=== PATIENT | male | born 1930 | race Caucasian/White ===

== ENCOUNTER 2016-06-01 11:47 | Emergency (ER) | payer MEDICARE, OTHER ==
[~2016-06-01] VITALS: Ht 175.3 cm; Wt 79.4 kg
[~2016-06-01 11:47] MED LIST: BUPR75TA4 PO; MEMA5TAB2; METF-312 PO; TELM20TA2; [UNRECOGNIZED DRUG - CODE]
[2016-06-01 12:03] VITALS: BP 153/95
[2016-06-01] MEDS ORDERED: LIDOCAINE 1% HCL (LOCAL ANESTH.) INJ 20ML MDV ONE (14:24)
[2016-06-01] MEDS ORDERED: ACETAMINOPHEN 325 MG TAB PO ONE (14:45)
== END 2016-06-01 16:17 | disposition home or self-care (01) ==
LOC: ER 11:58
DX: S61.411A Laceration without foreign body of right hand, initial encounter (principal); S01.01XA Laceration without foreign body of scalp, initial encounter; E11.9 Type 2 diabetes mellitus without complications; E78.5 Hyperlipidemia, unspecified; I10 Essential (primary) hypertension; W01.0XXA Fall on same level from slipping, tripping and stumbling without subsequent striking against object, initial encounter; Y93.E1 Activity, personal bathing and showering; Y99.8 Other external cause status; Y92.89 Other specified places as the place of occurrence of the external cause; Z79.899 Other long term (current) drug therapy
CPT/HCPCS: 12002; 70450; 73130; 99284; J2001

== ENCOUNTER 2016-06-03 10:00 | Emergency (ER) | payer MEDICARE, OTHER ==
[~2016-06-03] VITALS: Ht 175.3 cm; Wt 81.6 kg
[2016-06-03 10:58] VITALS: BP 158/94
== END 2016-06-03 11:13 | disposition home or self-care (01) ==
LOC: ER 10:04
DX: S01.01XD Laceration without foreign body of scalp, subsequent encounter (principal); S61.411D Laceration without foreign body of right hand, subsequent encounter; E11.9 Type 2 diabetes mellitus without complications; E78.5 Hyperlipidemia, unspecified; I10 Essential (primary) hypertension; Z48.01 Encounter for change or removal of surgical wound dressing

== ENCOUNTER 2016-07-08 04:53 | Emergency (ER) | payer MEDICARE, OTHER ==
[~2016-07-08] VITALS: Ht 177.8 cm; Wt 81.6 kg
[~2016-07-08 04:53] MED LIST changes: +ACET-1079 PO; +ASPI81CH59 PO; +CLOP75TA41 PO; +LOSA25TA9 PO; +SITA100T7 PO
[2016-07-08 06:05] LABS: Basophils # (auto) 0 uL; Basophils % (auto) 0.3 % (0.0-2.0); Eosinophils # (auto) 0.2 uL; Eosinophils % (auto) 2.3 % (0.0-7.0); Hematocrit 40.8 % (41.0-53.0); Hemoglobin 13.1 g/dL (13.5-17.5); Lymphocytes # (auto) 0.7 uL; Lymphocytes % (auto) 11.2 % (10.0-50.0); Mean Corpuscular Hemoglobin 30.2 pg (28.0-32.0); Mean Corpuscular Hgb Conc. 32.1 g/dL (32.0-36.0); Mean Corpuscular Volume 94.2 fL (80.0-100.0); Mean Platelet Volume 8.7 fL (7.4-10.4); Monocytes # (auto) 0.6 uL; Monocytes % (auto) 8.6 % (0.0-12.0); Neutrophils # (auto) 5.1 uL; Neutrophils % (auto) 77.6 % (37.0-80.0); Platelet Count (auto) 199 10^3/uL (140-450); Red Cell Distribution Width 18.2 % (11.6-16.0); White Blood Cell 6.6 10^3/uL (4.4-10.8)
[2016-07-08 06:21] LABS: Partial Thromboplastin Time 26.5 sec (22.64-33.71)
[2016-07-08 06:37] LABS: Albumin 2.9 g/dL (3.4-5.0); BUN/Creatinine Ratio 18.4; Magnesium 1.9 mg/dL (1.6-2.6); Potassium 4.4 mmol/L (3.5-5.1)
[2016-07-08 06:41] LABS: INR 1.51 (0.9-1.15); Prothrombin Time 15.6 sec (9.37-12.3)
[2016-07-08 06:42] LABS: Bilirubin, Total 1.2 mg/dL (0.2-1.0); Total Protein 5.9 g/dL (6.4-8.2)
[2016-07-08] MEDS ORDERED: ETOMIDATE (2MG/ML) 20ML VIAL IV ONE (08:04)
[2016-07-08] MEDS ORDERED: SUCCINYLCHOLINE CHLORIDE 20 MG/ML 10ML VIAL IV ONE (08:04)
[2016-07-08] MEDS ORDERED: MIDAZOLAM HCL 1MG/1ML-2 ML VIAL ONE (08:05)
[2016-07-08] MEDS ORDERED: PROPOFOL 100 ML IV ONE (08:17)
[2016-07-08 08:21] VITALS: BP 160/106
== END 2016-07-08 08:39 | disposition short-term general hospital (02) ==
LOC: ER 04:53
DX: G93.41 Metabolic encephalopathy (principal); R79.89 Other specified abnormal findings of blood chemistry; I12.9 Hypertensive chronic kidney disease with stage 1 through stage 4 chronic kidney disease, or unspecified chronic kidney disease; E11.22 Type 2 diabetes mellitus with diabetic chronic kidney disease; N18.9 Chronic kidney disease, unspecified; I25.2 Old myocardial infarction; Z95.0 Presence of cardiac pacemaker; R41.82 Altered mental status, unspecified
CPT/HCPCS: 31500; 36415; 51702; 70450; 73090; 73130; 73502; 80053; 83735; 83880; 84484; 85025; 85610; 85730; 93005; 99291; J0330; J2250; J2704

== ENCOUNTER 2017-06-18 11:55 | Inpatient (IN) | payer MEDICARE, OTHER ==
[~2017-06-18] VITALS: Ht 177.8 cm; Wt 81.1 kg
[~2017-06-18 11:55] MED LIST changes: -METF-312 PO; +METF-370 PO; +TELM20TA; -TELM20TA2
[2017-06-18] MEDS ORDERED: KETOROLAC TROMETH 30 MG/ML 1ML VIAL IV ONE (12:30)
[2017-06-18 14:00] LABS: Basophils # (auto) 0.1 uL; Eosinophils # (auto) 0.2 uL; Eosinophils % (auto) 2.5 % (0.0-7.0); Hematocrit 42.6 % (41.0-53.0); Hemoglobin 14.4 g/dL (13.5-17.5); Lymphocytes # (auto) 0.5 uL; Lymphocytes % (auto) 6.6 % (10.0-50.0); Mean Corpuscular Hemoglobin 30.1 pg (28.0-32.0); Mean Corpuscular Hgb Conc. 33.8 g/dL (32.0-36.0); Mean Corpuscular Volume 89.2 fL (80.0-100.0); Monocytes # (auto) 0.7 uL; Monocytes % (auto) 9.8 % (0.0-12.0); Neutrophils % (auto) 80.1 % (37.0-80.0); Nucleated Red Blood Cells % 0.2 %; Platelet Count (auto) 207 10^3/uL (140-450); Red Blood Cells 4.77 10^6/uL (4.5-5.90); White Blood Cell 7.5 10^3/uL (4.4-10.8)
[2017-06-18 14:26] LABS: Albumin 3.2 g/dL (3.4-5.0); BUN/Creatinine Ratio 24.6; Bilirubin, Total 1.4 mg/dL (0.2-1.0); Calcium 8.4 mg/dL (8.5-10.1); Magnesium 2.4 mg/dL (1.6-2.6); Total Protein 7.2 g/dL (6.4-8.2)
[2017-06-18] MEDS ORDERED: traMADol HCL 50 MG TAB PO PRN (15:00)
[2017-06-18] MEDS ORDERED: ONDANSETRON HCL 4 MG/2 ML VIAL IV PRN (15:00)
[2017-06-18] MEDS ORDERED: ACETAMINOPHEN 500 MG TAB PO PRN (15:00)
[2017-06-18] MEDS ORDERED: MORPHINE SULFATE 4 MG/ML SYR/VIAL IV PRN (15:00)
[2017-06-18] MEDS ORDERED: DEXTROSE (50%) 50ML SYRG IV PRN (15:00)
[2017-06-18] MEDS ORDERED: LIDOCAINE 5% TOPICAL PATCH TOP ONE (15:45)
[2017-06-18] MEDS: ACCU-CHEK COMFORT CURVE STRIP VI SCH ×2 (17:54→23:12)
[2017-06-18] MEDS: InsuLIN REG 1unit/0.01ml Soln (100units/ml) SC SCH ×2 (17:54→23:12)
[2017-06-18] MEDS: hydrALAZINE HCL 20 MG/ML VL IV SCH (18:17)
[2017-06-18] MEDS: TAMSULOSIN HYDROCHLORIDE 0.4 MG CAP PO SCH (18:17)
[2017-06-18] MEDS: CALCIUM W/VIT D (600MG/400IU) TAB PO SCH (18:17)
[2017-06-18 20:46] VITALS: BP 116/72
[2017-06-18 22:23] VITALS: BP 116/72
[2017-06-19] MEDS: hydrALAZINE HCL 20 MG/ML VL IV SCH ×5 (00:09→23:11)
[2017-06-19 04:06] LABS: Urine Bacteria NONE SEEN /hpf (None Seen); Urine Blood Negative /uL (Negative); Urine Mucus FEW (None Seen); Urine Specific Gravity 1.022 (1.001-1.035); Urine WBC 2 /hpf (0 - 3)
[2017-06-19 04:53] VITALS: BP 135/80
[2017-06-19] MEDS: InsuLIN REG 1unit/0.01ml Soln (100units/ml) SC SCH ×4 (06:13→22:27)
[2017-06-19] MEDS: ACCU-CHEK COMFORT CURVE STRIP VI SCH ×4 (06:13→22:27)
[2017-06-19 06:57] LABS: Basophils # (auto) 0 uL; Basophils % (auto) 0.5 % (0.0-2.0); Eosinophils # (auto) 0.3 uL; Eosinophils % (auto) 4.6 % (0.0-7.0); Hematocrit 40.7 % (41.0-53.0); Hemoglobin 13.9 g/dL (13.5-17.5); Lymphocytes # (auto) 0.5 uL; Lymphocytes % (auto) 8.8 % (10.0-50.0); Mean Corpuscular Hemoglobin 30.2 pg (28.0-32.0); Mean Corpuscular Hgb Conc. 34.1 g/dL (32.0-36.0); Mean Corpuscular Volume 88.4 fL (80.0-100.0); Monocytes # (auto) 0.7 uL; Monocytes % (auto) 11.1 % (0.0-12.0); Neutrophils # (auto) 4.6 uL; Nucleated Red Blood Cells % 0.2 %; Platelet Count (auto) 212 10^3/uL (140-450); White Blood Cell 6.1 10^3/uL (4.4-10.8)
[2017-06-19 07:12] LABS: BUN/Creatinine Ratio 34.7; Calcium 8.4 mg/dL (8.5-10.1); Potassium 3.7 mmol/L (3.5-5.1)
[2017-06-19 08:58] VITALS: BP 117/56
[2017-06-19] MEDS: CALCIUM W/VIT D (600MG/400IU) TAB PO SCH ×2 (08:58→18:11)
[2017-06-19] MEDS ORDERED: ASPirin-EC 81 mg tab PO SCH (10:00)
[2017-06-19] MEDS ORDERED: CLOPIDOGREL BISULFATE 75 MG TAB PO SCH (10:00)
[2017-06-19] MEDS: MEMANTINE HCL 5 MG TAB PO SCH (10:28)
[2017-06-19] MEDS: ASPirin-EC 81 mg tab PO SCH (10:28)
[2017-06-19] MEDS: buPROPion HCL 75 MG TAB PO SCH (10:28)
[2017-06-19] MEDS: amLODIPine BESYLATE 5 MG TAB PO SCH (10:28)
[2017-06-19 13:00] VITALS: BP 122/68
[2017-06-19] MEDS: MORPHINE SULFATE 4 MG/ML SYR/VIAL IV PRN ×2 (14:48→22:22)
[2017-06-19] MEDS: LIDOCAINE 5% TOPICAL PATCH TOP SCH (14:48)
[2017-06-19 16:25] VITALS: BP 124/74
[2017-06-19] MEDS: TAMSULOSIN HYDROCHLORIDE 0.4 MG CAP PO SCH (18:11)
[2017-06-19 20:00] VITALS: BP 132/75
[2017-06-19 21:44] VITALS: BP 132/75
[2017-06-20] MEDS: MORPHINE SULFATE 4 MG/ML SYR/VIAL IV PRN ×2 (02:34→14:38)
[2017-06-20 04:56] VITALS: BP 161/89
[2017-06-20] MEDS: hydrALAZINE HCL 20 MG/ML VL IV SCH ×3 (05:50→18:14)
[2017-06-20] MEDS: ACCU-CHEK COMFORT CURVE STRIP VI SCH ×4 (05:50→22:00)
[2017-06-20] MEDS: InsuLIN REG 1unit/0.01ml Soln (100units/ml) SC SCH ×4 (06:18→22:00)
[2017-06-20 09:38] VITALS: BP 141/79
[2017-06-20] MEDS: buPROPion HCL 75 MG TAB PO SCH (10:13)
[2017-06-20] MEDS: ASPirin-EC 81 mg tab PO SCH (10:13)
[2017-06-20] MEDS: CALCIUM W/VIT D (600MG/400IU) TAB PO SCH ×2 (10:13→18:12)
[2017-06-20] MEDS: MEMANTINE HCL 5 MG TAB PO SCH (10:14)
[2017-06-20] MEDS: amLODIPine BESYLATE 5 MG TAB PO SCH (10:14)
[2017-06-20 13:00] VITALS: BP 136/87
[2017-06-20] MEDS: LIDOCAINE 5% TOPICAL PATCH TOP SCH (14:39)
[2017-06-20 16:06] VITALS: BP 124/77
[2017-06-20] MEDS: TAMSULOSIN HYDROCHLORIDE 0.4 MG CAP PO SCH (18:13)
[2017-06-20 20:00] VITALS: BP 146/78
[2017-06-20 22:00] VITALS: BP 146/78
[2017-06-21] MEDS: hydrALAZINE HCL 20 MG/ML VL IV SCH ×3 (00:15→12:06)
[2017-06-21 05:30] VITALS: BP 148/77
[2017-06-21] MEDS: InsuLIN REG 1unit/0.01ml Soln (100units/ml) SC SCH ×2 (06:38→12:05)
[2017-06-21] MEDS: ACCU-CHEK COMFORT CURVE STRIP VI SCH ×2 (06:52→12:05)
[2017-06-21 09:06] VITALS: BP 132/76
[2017-06-21] MEDS: CALCIUM W/VIT D (600MG/400IU) TAB PO SCH (09:11)
[2017-06-21] MEDS: buPROPion HCL 75 MG TAB PO SCH (11:06)
[2017-06-21] MEDS: amLODIPine BESYLATE 5 MG TAB PO SCH (11:07)
[2017-06-21] MEDS: ASPirin-EC 81 mg tab PO SCH (11:08)
[2017-06-21] MEDS: MEMANTINE HCL 5 MG TAB PO SCH (11:08)
[2017-06-21 12:14] VITALS: BP 104/61
== END 2017-06-21 16:40 | DRG 542 ==
LOC: EDBD 11:55 → ER 11:55 → OVERFLOW 11:56 → CENTRAL 18:41
PROVIDERS: ADMIT Internal Medicine; ATTEND Internal Medicine
DX: M48.54XA Collapsed vertebra, not elsewhere classified, thoracic region, initial encounter for fracture (principal); G93.41 Metabolic encephalopathy; E44.0 Moderate protein-calorie malnutrition; I27.21 Secondary pulmonary arterial hypertension; I48.91 Unspecified atrial fibrillation; D68.59 Other primary thrombophilia; G91.2 (Idiopathic) normal pressure hydrocephalus; E11.9 Type 2 diabetes mellitus without complications; G30.9 Alzheimer's disease, unspecified; F02.80 Dementia in other diseases classified elsewhere, unspecified severity, without behavioral disturbance, psychotic disturbance, mood disturbance, and anxiety; W18.30XA Fall on same level, unspecified, initial encounter; I11.9 Hypertensive heart disease without heart failure; K57.30 Diverticulosis of large intestine without perforation or abscess without bleeding; N40.0 Benign prostatic hyperplasia without lower urinary tract symptoms; Z79.82 Long term (current) use of aspirin; Z79.899 Other long term (current) drug therapy; Z82.49 Family history of ischemic heart disease and other diseases of the circulatory system; Z79.84 Long term (current) use of oral hypoglycemic drugs; Y93.89 Activity, other specified; Y92.89 Other specified places as the place of occurrence of the external cause; Y99.8 Other external cause status; Z68.25 Body mass index [BMI] 25.0-25.9, adult; Z95.0 Presence of cardiac pacemaker
CPT/HCPCS: 36415; 74176; 80048; 80053; 81001; 82962; 83036; 83690; 83735; 85025; 93005; 94761; 96374; 97163; J1815; J1885

== ENCOUNTER → 2017-08-28 | Outpatient (CLI) | payer MEDICARE, OTHER ==
[2017-08-28 12:04] LABS: Basophils # (auto) 0.1 uL; Basophils % (auto) 0.8 % (0.0-2.0); Eosinophils # (auto) 0.2 uL; Eosinophils % (auto) 2.5 % (0.0-7.0); Hematocrit 43.2 % (41.0-53.0); Hemoglobin 14.3 g/dL (13.5-17.5); Lymphocytes # (auto) 0.6 uL; Lymphocytes % (auto) 7.8 % (10.0-50.0); Mean Corpuscular Hemoglobin 29.1 pg (28.0-32.0); Mean Corpuscular Volume 88.1 fL (80.0-100.0); Monocytes # (auto) 0.6 uL; Neutrophils % (auto) 80.9 % (37.0-80.0); Platelet Count (auto) 290 10^3/uL (140-450); Red Cell Distribution Width 15.6 % (11.8-14.3); White Blood Cell 7.4 10^3/uL (4.4-10.8)
[2017-08-28 12:05] LABS: Urine Blood Negative /uL (Negative); Urine Specific Gravity 1.024 (1.001-1.035)
[2017-08-28 13:32] LABS: Albumin 3.6 g/dL (3.4-5.0); BUN/Creatinine Ratio 23.2; Calcium 9.3 mg/dL (8.5-10.1); Potassium 4.3 mmol/L (3.5-5.1); Total Protein 7.7 g/dL (6.4-8.2)
[2017-08-28 13:49] LABS: INR 1.11 (0.9-1.15); Partial Thromboplastin Time 27.8 sec (22.64-33.71); Prothrombin Time 12.1 sec (9.37-12.3)
== END | disposition home or self-care (01) ==
LOC: LAB 11:41
DX: Z01.812 Encounter for preprocedural laboratory examination (principal); D68.8 Other specified coagulation defects; M25.129 Fistula, unspecified elbow; Z79.01 Long term (current) use of anticoagulants
CPT/HCPCS: 36415; 80053; 81003; 85025; 85610; 85730

== ENCOUNTER → 2017-09-28 | Outpatient (CLI) | payer MEDICARE, OTHER ==
[2017-09-28 14:01] LABS: Basophils # (auto) 0.1 uL; Basophils % (auto) 0.9 % (0.0-2.0); Eosinophils # (auto) 0.2 uL; Eosinophils % (auto) 2.7 % (0.0-7.0); Hematocrit 39.6 % (41.0-53.0); Hemoglobin 13.1 g/dL (13.5-17.5); Lymphocytes # (auto) 0.8 uL; Lymphocytes % (auto) 11.5 % (10.0-50.0); Mean Corpuscular Hgb Conc. 33.1 g/dL (32.0-36.0); Mean Corpuscular Volume 90.7 fL (80.0-100.0); Monocytes # (auto) 0.6 uL; Monocytes % (auto) 9.2 % (0.0-12.0); Neutrophils # (auto) 5.3 uL; Neutrophils % (auto) 75.7 % (37.0-80.0); Platelet Count (auto) 236 10^3/uL (140-450); Red Blood Cells 4.37 10^6/uL (4.5-5.90); White Blood Cell 6.9 10^3/uL (4.4-10.8)
[2017-09-28 14:11] LABS: Urine Bacteria NONE SEEN /hpf (None Seen); Urine Blood Negative /uL (Negative); Urine Mucus FEW (None Seen); Urine Specific Gravity 1.022 (1.001-1.035); Urine WBC 2 /hpf (0 - 3)
[2017-09-28 14:19] LABS: INR 1.17 (0.9-1.15); Partial Thromboplastin Time 28.2 sec (23.78-33.04); Prothrombin Time 12.4 sec (9.27-12.13)
[2017-09-28 14:59] LABS: Albumin 3.5 g/dL (3.4-5.0); BUN/Creatinine Ratio 24.1; Calcium 8.9 mg/dL (8.5-10.1); Potassium 4.3 mmol/L (3.5-5.1)
[2017-09-28 15:01] LABS: Total Protein 7.5 g/dL (6.4-8.2)
== END | disposition home or self-care (01) ==
LOC: LAB 13:37
PROVIDERS: ATTEND Specialist
DX: H25.10 Age-related nuclear cataract, unspecified eye (principal); I11.9 Hypertensive heart disease without heart failure; E11.9 Type 2 diabetes mellitus without complications; Z79.01 Long term (current) use of anticoagulants; Z79.899 Other long term (current) drug therapy
CPT/HCPCS: 36415; 80053; 81001; 85025; 85610; 85730